=== PATIENT | male | born 1995 | race Caucasian/White ===

== ENCOUNTER 2017-07-16 00:30 | Emergency (ER) | payer OTHER ==
[~2017-07-16] VITALS: Ht 177.8 cm; Wt 85.1 kg
[2017-07-16 00:33] VITALS: TEMP 36.8; Ht 177.8 cm; Wt 85.1 kg
[2017-07-16] MEDS ORDERED: HYDROmorphone INJ 2 MG/ML SYR/VIAL IM STA (01:07)
--- NOTE | 2017-07-16 01:17 | EMERGENCY ROOM VISIT NOTE ---
History Report prepared by Ginger: Jude Abernathy Under the Supervision of: Dr. Lucila Gilmore M.D. First contact with patient: 00:39 Chief Complaint: SHOULDER PAIN Stated Complaint: INJURED RIGHT SHOULDER FROM HOCKEY History of Present Illness The patient is a 22 year old male who presents to the Emergency Room with complaints of constant right shoulder dislocation beginning prior to arrival. The patient states he was playing in a hockey game when he dislocated his right shoulder. 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 The patient denies any other symptoms. Source of History: patient Onset: [employer] Position: shoulder (right) Quality: other (dislocation) Timing: constant Note: Pt denies any other symptoms. Review of Systems See HPI for pertinent positives & negatives. A total of 6 systems reviewed and were otherwise negative. Past Medical & Surgical Medical Problems: (1) Separation of AC joint Family History Heart disease Hypertension Kidney disease Kidney stones Social History Smoking Status: Never Smoker Smokeless Tobacco Use: No Alcohol Use: occasionally Marital Status: single Housing Status: lives with roommate Occupation Status: [employer] student Current/Historical Medications No Active Prescriptions or Reported Meds Allergies Coded Allergies: No Known Allergies (Unverified , 07/16/17) Physical Exam Vital Signs Date Time Temp Pulse Resp B/P (MAP) Pulse Ox O2 Delivery O2 Flow Rate FiO2 07/16/17 02:02 70 18 134/79 96 Room Air 07/16/17 01:27 65 18 98 Room Air 07/16/17 00:33 36.8 83 18 132/80 97 Room Air Physical Exam Vital signs reviewed. General: Well-appearing 22 year old male, in no significant distress. Cardiovascular: Regular rate and rhythm, no extra sounds. Pulmonary: Clear to auscultation bilaterally, normal work of breathing. Abdomen: Soft, nontender, nondistended, positive bowel sounds. Musculoskeletal: No peripheral edema. Right humeral head is felt anteriorly. Significant muscular spasm. Unable to complete ROM without significant pain. Neurologic: Patient awake alert and oriented x 3 Medical Decision & Procedures ER Provider Diagnostic Interpretation: X-ray results as stated below per interpretation by me and the radiologist: Pre-reduction Right Shoulder X-ray per my interpretation: Anterior dislocation of the right shoulder. No acute fracture identified. Post-reduction Right Shoulder X-ray per my interpretation: Appears to have shoulder in proper alignment. No acute fracture identified. Medications Administered Medications (Trade) Dose Ordered Sig/Mor Route Start Time Stop Time Status Last Admin Dose Admin Hydromorphone HCl (Dilaudid Inj) 2 mg NOW STAT IM 07/16/17 01:07 07/16/17 01:08 DC 07/16/17 01:14 2 MG Procedure Anterior Shoulder Dislocation Reduction Indication: Right shoulder dislocation Verbal consent obtained. Risks and benefits were explained with the usual customary discussion. A time out was taken. Neurovascular examination before the procedure was intact. The right shoulder glenohumeral dislocation was reduced by placing the patient prone and applying gentle downward inline traction on the humerus, with the elbow flexed at 90 degrees, while scapula manipulation was applied. This resulted in an easy reduction without complication. Neurovascular examination after the procedure was intact. The patient had significant pain relief and tolerated the procedure well. ED Course 0059: Past medical records reviewed. The patient was evaluated in room B08. A complete history and physical examination was performed. 0107: Ordered Hydromorphone HCl 2ml IM 0147: Upon reduction of the right shoulder, the patient appeared to have improvement of his symptoms. Please refer to the procedure note for specific details. I discussed findings with him. He verbalized agreement of the treatment plan. The patient was discharged home. Medical Decision Differential diagnosis: Etiologies such as fracture, dislocation, neurovascular compromise, compartment syndrome, soft tissue injury, as well as others were entertained. This patient was evaluated and appeared to be in significant discomfort. X-ray of the right shoulder is negative for fracture but significant for an anterior shoulder dislocation. The patient's shoulder was reduced, please see my procedure note above. He did receive 2 mg of IM Dilaudid prior to the procedure. Patient was placed in a sling and swath at all times unless showering. He was advised to follow-up with orthopedic surgery within the next 2 weeks. He will use ibuprofen as needed for pain. Patient will return to the emergency department for worsening of symptoms or any medical concerns. He was discharged to care of his brother. Medication Reconcilliation Current Medication List: was personally reviewed by me Blood Pressure Screening Patient's blood pressure: Normal blood pressure Blood pressure disposition: Did not require urgent referral Impression Primary Impression: Dislocation of right shoulder joint Scribe Attestation The scribe's documentation has been prepared under my direction and personally reviewed by me in its entirety. I confirm that the note above accurately reflects all work, treatment, procedures, and medical decision making performed by me. Departure Information Dispostion Home / Self-Care Prescriptions No Active Prescriptions or Reported Meds Referrals Guy Selby MD [facility] Forms HOME CARE DOCUMENTATION FORM, IMPORTANT VISIT INFORMATION Patient Instructions ED Dislocation Shoulder Redu, My [facility] Additional Instructions Diagnosis: Right shoulder dislocation Please wear the shoulder immobilizer at all times unless showering. Avoid over the head movements and external rotation of the arm. Ibuprofen 600 mg every 6 hours as needed for pain with food. Ice off-and-on for the next 24-48 hours. Follow with orthopedic surgery within the next 1-2 weeks for reevaluation. See Dr. Selby's info below. Wear the sling until you are cleared by orthopedics. Return to the emergency department for her recurrent issues or any medical concerns.
[2017-07-16 02:02] VITALS: BP 134/79; PULSE 70; O2SAT 96
--- NOTE | 2017-07-16 07:09 | DIAGNOSTIC IMAGING REPORT ---
RIGHT SHOULDER 2 VIEWS HISTORY: shoulder reduction COMPARISON: None. FINDINGS: Slight flattening of the lateral humeral head suggestive of a Hill-Sachs impaction fracture. The prior shoulder dislocation has been reduced. No radiopaque foreign bodies. IMPRESSION: Interval reduction of the right shoulder dislocation. The alignment appears anatomic. Probable small Hill-Sachs impaction fracture. Electronically signed by: Tanmay Gustafson M.D. 07/16/2017 7:08 AM Dictated Date/Time: 07/16/2017 7:07 AM
--- NOTE | 2017-07-16 07:10 | DIAGNOSTIC IMAGING REPORT ---
RIGHT SHOULDER 2 VIEWS HISTORY: right shoulder pain, hockey COMPARISON: None. FINDINGS: Right anterior shoulder dislocation. No fractures identified. The right clavicle is intact. Soft tissues are unremarkable. No radiopaque foreign bodies. IMPRESSION: Right anterior shoulder dislocation. Electronically signed by: Tanmay Gustafson M.D. 07/16/2017 7:08 AM Dictated Date/Time: 07/16/2017 7:08 AM
== END 2017-07-16 02:04 | disposition home or self-care (01) ==
LOC: C.EDB 00:32
DX: S43.004A Unspecified dislocation of right shoulder joint, initial encounter (principal); X50.9XXA Other and unspecified overexertion or strenuous movements or postures, initial encounter; Z82.49 Family history of ischemic heart disease and other diseases of the circulatory system